=== PATIENT | female | born 1965 | race Caucasian/White ===

== ENCOUNTER 2018-10-23 19:28 | Emergency (ER) | payer BC, MEDICAID ==
[~2018-10-23] VITALS: Ht 167.6 cm; Wt 99.7 kg
[2018-10-23] MEDS ORDERED: ONDANSETRON 4MG ODT PO ONE (23:00)
[2018-10-23] MEDS ORDERED: HYDROCODONE/ACETAMINOPHEN 5/325MG TABLET PO ONE (23:00)
[2018-10-24] MEDS ORDERED: TETANUS, DIPHTHERIA, PERTUSSIS VAC/PF 0.5ML (>7YR OLD) IM ONE (01:30)
[2018-10-24 01:45] VITALS: BP 135/80
== END 2018-10-24 01:45 | disposition home or self-care (01) ==
LOC: ER 19:28
DX: M25.512 Pain in left shoulder (principal); M25.511 Pain in right shoulder; M54.12 Radiculopathy, cervical region; E11.40 Type 2 diabetes mellitus with diabetic neuropathy, unspecified; E11.65 Type 2 diabetes mellitus with hyperglycemia; F17.200 Nicotine dependence, unspecified, uncomplicated; I10 Essential (primary) hypertension; E66.01 Morbid (severe) obesity due to excess calories; Z68.35 Body mass index [BMI] 35.0-35.9, adult; Z88.0 Allergy status to penicillin; Z88.6 Allergy status to analgesic agent; Z90.49 Acquired absence of other specified parts of digestive tract; Z87.81 Personal history of (healed) traumatic fracture; Y04.0XXA Assault by unarmed brawl or fight, initial encounter
CPT/HCPCS: 71045; 72125; 73030; 81025; 82962; 99284; Q0162; 90715